=== PATIENT | male | born 1995 | race Caucasian/White ===

== ENCOUNTER 2017-07-11 07:42 | Outpatient (CLI) | payer OTHER ==
--- NOTE | 2017-07-11 10:39 | CT ---
CT NECK SOFT TISSUES WITH CONTRAST: Date: 07/11/17 HISTORY: 22-year-old male with R22.1 lump in neck. Right-sided neck swelling for 2 days. TECHNIQUE: External marker was placed at the site of the palpable lump in the right lower neck. 100 mL of Isovue -370 was injected IV. A 90 second postcontrast scan was performed from superior aspect of orbits to u pper nancy. Coronal and sagittal reconstructions. FINDINGS: There is motion artifact, which may be swallowing or speaking, degrading the images of the larynx, ma ndible, and the submandibular and sublingual spaces. There is an approximately 4 x 2 x 6 cm thin-walled low attenuation right retroclavicular mass. This i s probably a cystic mass, but streak artifact from hyperdense contrast material in adjacent veins, pl us streak artifact from the adjacent osseous structures, partially obscures this mass, and makes dens ity Hounsfield unit measurements inaccurate. For example, at the superior aspect of this mass, the de nsity is -52 HU, whereas inferiorly it is +38 HU. The brownlee are approximately 2 mm in thickness. This mass is lateral to the right anterior scalene muscles, medial to the right scapula. There is no significant cervical lymphadenopathy. No abnormality is identified in the posterior cervi tahira, perivertebral, retropharyngeal, parapharyngeal, carotid, parotid, business manager, or pharyngeal muco chalo, spaces, within the limitations of the motion-degraded images. IMPRESSION: 1. Moderately large, relatively low density right retroclavicular mass. Exact etiology is uncertain. This is probably cystic. Possibilities include lymphatic malformation, seroma, or resolving hematoma . This is unlikely to be an abscess. Despite the negative Hounsfield unit measurements in some areas, this is probably not fatty (i.e. probably not a lipoma), but the evaluation is incompletely. 2. Recommend MRI of the right retroclavicular region with and without contrast. 3. The rest of the neck is normal. ADDENDUM: Additional clinical information obtained from Dr. Rodriguez: patient had arthrogram in [place], but the injection was reportedly parasternal rather than glenohumeral, which would be unusual. Perhaps the probably cystic lesion described above represents sequela of that injection. CODE CR. POS: [facility]
[2017-07-11] MEDS ORDERED: Iopamidol 370 76% 100 ML VIAL ONE (11:33)
== END 2017-07-11 07:43 | disposition home or self-care (01) ==
LOC: CT 07:42 → EDBD 08:00
PROVIDERS: ATTEND Otolaryngology Plastic Surgery within the Head & Neck
DX: R22.1 Localized swelling, mass and lump, neck (principal)
CPT/HCPCS: 70491